=== PATIENT | male | born 1965 | race African-American/Black ===

== ENCOUNTER → 2021-07-07 | Outpatient (CLI) | payer OTHER | LOC: HYPER 15:45 | PROVIDERS: ATTEND Emergency Medicine | DX: T81.32XA Disruption of internal operation (surgical) wound, not elsewhere classified, initial encounter (principal); L89.626 Pressure-induced deep tissue damage of left heel; S86.012A Strain of left Achilles tendon, initial encounter; M25.572 Pain in left ankle and joints of left foot; M21.6X2 Other acquired deformities of left foot; M92.62 Juvenile osteochondrosis of tarsus, left ankle; E66.9 Obesity, unspecified; Z79.899 Other long term (current) drug therapy; Z68.37 Body mass index [BMI] 37.0-37.9, adult; X58.XXXA Exposure to other specified factors, initial encounter; Y93.89 Activity, other specified; Y92.89 Other specified places as the place of occurrence of the external cause; Y99.8 Other external cause status ==

== ENCOUNTER → 2021-07-15 | Outpatient (CLI) | payer OTHER | LOC: HYPER 09:42 | PROVIDERS: ATTEND Emergency Medicine | DX: T81.32XD Disruption of internal operation (surgical) wound, not elsewhere classified, subsequent encounter (principal); L89.626 Pressure-induced deep tissue damage of left heel; S86.012D Strain of left Achilles tendon, subsequent encounter; M25.572 Pain in left ankle and joints of left foot; M21.6X2 Other acquired deformities of left foot; M92.62 Juvenile osteochondrosis of tarsus, left ankle; E66.9 Obesity, unspecified; Z68.37 Body mass index [BMI] 37.0-37.9, adult; X58.XXXD Exposure to other specified factors, subsequent encounter ==

== ENCOUNTER → 2021-07-22 | Outpatient (CLI) | payer OTHER | LOC: HYPER 10:23 | PROVIDERS: ATTEND Emergency Medicine | DX: T81.32XD Disruption of internal operation (surgical) wound, not elsewhere classified, subsequent encounter (principal); S86.012D Strain of left Achilles tendon, subsequent encounter; M25.572 Pain in left ankle and joints of left foot; M21.6X2 Other acquired deformities of left foot; M92.62 Juvenile osteochondrosis of tarsus, left ankle; Z79.01 Long term (current) use of anticoagulants; Z79.899 Other long term (current) drug therapy; Y83.8 Other surgical procedures as the cause of abnormal reaction of the patient, or of later complication, without mention of misadventure at the time of the procedure; X58.XXXD Exposure to other specified factors, subsequent encounter ==

== ENCOUNTER → 2021-07-29 | Outpatient (CLI) | payer OTHER | LOC: HYPER 09:48 | PROVIDERS: ATTEND Emergency Medicine | DX: T81.32XD Disruption of internal operation (surgical) wound, not elsewhere classified, subsequent encounter (principal); S86.012D Strain of left Achilles tendon, subsequent encounter; L84 Corns and callosities; M25.572 Pain in left ankle and joints of left foot; M21.6X2 Other acquired deformities of left foot; M92.62 Juvenile osteochondrosis of tarsus, left ankle; Z79.01 Long term (current) use of anticoagulants; X58.XXXD Exposure to other specified factors, subsequent encounter; Y83.8 Other surgical procedures as the cause of abnormal reaction of the patient, or of later complication, without mention of misadventure at the time of the procedure ==

== ENCOUNTER → 2021-08-10 | Outpatient (CLI) | payer OTHER | LOC: HYPER 08:07 | PROVIDERS: ATTEND Emergency Medicine | DX: T81.32XD Disruption of internal operation (surgical) wound, not elsewhere classified, subsequent encounter (principal); S86.012D Strain of left Achilles tendon, subsequent encounter; L97.322 Non-pressure chronic ulcer of left ankle with fat layer exposed; M25.572 Pain in left ankle and joints of left foot; M21.6X2 Other acquired deformities of left foot; M92.62 Juvenile osteochondrosis of tarsus, left ankle; Z79.01 Long term (current) use of anticoagulants; Z79.899 Other long term (current) drug therapy; Y83.8 Other surgical procedures as the cause of abnormal reaction of the patient, or of later complication, without mention of misadventure at the time of the procedure; X58.XXXD Exposure to other specified factors, subsequent encounter ==

== ENCOUNTER → 2021-08-24 | Outpatient (CLI) | payer OTHER | LOC: HYPER 09:46 | PROVIDERS: ATTEND Emergency Medicine | DX: T81.32XD Disruption of internal operation (surgical) wound, not elsewhere classified, subsequent encounter (principal); S86.012D Strain of left Achilles tendon, subsequent encounter; M25.572 Pain in left ankle and joints of left foot; M21.6X2 Other acquired deformities of left foot; M92.62 Juvenile osteochondrosis of tarsus, left ankle; Z79.01 Long term (current) use of anticoagulants; Z79.899 Other long term (current) drug therapy; Y83.8 Other surgical procedures as the cause of abnormal reaction of the patient, or of later complication, without mention of misadventure at the time of the procedure; X58.XXXD Exposure to other specified factors, subsequent encounter ==